=== PATIENT | female | born 2000 | race African-American/Black ===

== ENCOUNTER 2018-09-25 11:39 | Emergency (ER) | payer BC ==
[2018-09-25] MEDS ORDERED: Ondansetron TAB* 4 MG PO ONE (12:21)
[2018-09-25] MEDS ORDERED: Ibuprofen TAB* 400 MG PO ONE (12:21)
--- NOTE | 2018-09-25 12:22 | ED ---
Complex/Multi-Sys Presentation - HPI Summary HPI Summary: Pt. is a 17 y.o female who presents to the ER for N/V/D that started this morning. Pt. also notes she has been short of breath today. Pt. states with her menstrual cycle she typically gets vomiting and diarrhea. Pt. states she started her normal period yesterday. Pt. denies fever, cough, urinary sxs. She is not on control. No other past medical hx. Sxs are moderate in severity. No current modifying factors. - History Of Current Complaint Chief Complaint: EDNauseaVomitDiarrh Time Seen by Provider: 09/25/18 11:43 Hx Obtained From: Patient - Allergies/Home Medications Allergies/Adverse Reactions: Allergies Allergy/AdvReac Type Severity Reaction Status Date / Time lactose Allergy Intermediate Diarrhea Verified 09/25/18 11:50 PMH/Surg Hx/FS Hx/Imm Hx Previously Healthy: Yes Infectious Disease History: No Infectious Disease History: Denies: Traveled Outside the [place] in Last 30 Days - Family History Known Family History: Positive: Non-Contributory - Social History Occupation: Student Lives: Dormitory/Roommates Alcohol Use: None Substance Use Type: Reports: None Smoking Status (MU): Never Smoked Tobacco Review of Systems Constitutional: Negative Negative: Fever, Chills ENT: Negative Cardiovascular: Negative Respiratory: Negative Positive: Abdominal Pain, Vomiting, Diarrhea, Nausea Positive: other - vaginal bleeding.. Negative: dysuria All Other Systems Reviewed And Are Negative: Yes Physical Exam Triage Information Reviewed: Yes Vital Signs On Initial Exam: Initial Vitals Temp Pulse Resp BP Pulse Ox 97.2 F 70 16 126/70 99 09/25/18 11:45 09/25/18 11:45 09/25/18 11:45 09/25/18 11:45 09/25/18 11:45 Vital Signs Reviewed: Yes Appearance: Positive: Well-Appearing - Pt. sitting up in bed in NAD. Skin: Positive: Warm, Dry Head/Face: Positive: Normal Head/Face Inspection Eyes: Positive: Normal, EOMI Neck: Positive: Supple Respiratory/Lung Sounds: Positive: Clear to Auscultation, Breath Sounds Present Cardiovascular: Positive: Normal, RRR Abdomen Description: Positive: Nontender, Soft. Negative: Guarding Neurological: Positive: Normal, CN Intact II-III Psychiatric: Positive: Affect/Mood Appropriate Diagnostics - Vital Signs Vital Signs Temp Pulse Resp BP Pulse Ox 09/25/18 11:45 97.2 F 70 16 126/70 99 - Laboratory Result Diagrams: 09/25/18 12:31 09/25/18 12:31 Lab Statement: Any lab studies that have been ordered have been reviewed, and results considered in the medical decision making process. Complex Multi-Symp Course/Dx Course Of Treatment: Pt. presenting with V/D and SOB. She is afebrile with stable VS. PERC score 0. Pt. notes once in the ER she is feeling better but is still c/o SOB and nausea. She has a benign abd. pain. Exam unremarkable. Pt. given zofran and motrin. Labs are unremarkable. CXR unremarkable per radiology. On re-exam pt. is feeling better and tolerating PO fluids. Will dc home with zofran. Motrin as directed. Advised to f.u with [facility] for further evaluation. Pt. will return to ER if sxs change or worsen. Pt. understands and agrees with plan. - Diagnoses Provider Diagnoses: Nausea & vomiting Discharge - Sign-Out/Discharge Documenting (check all that apply): Patient Departure Patient Received Moderate/Deep Sedation with Procedure: No - Discharge Plan Condition: Improved Disposition: HOME Prescriptions: Ondansetron TAB* [Zofran 4 MG Tab*] 4 mg PO Q6H PRN #12 tab PRN Reason: Nausea Patient Education Materials: Acute Nausea and Vomiting (ED) Referrals: [facility] [Outside] Additional Instructions: Call [facility] today schedule a close follow up appointment Zofran as directed Tylenol or Motrin for pain as directed Increase fluids Return to ER if symptoms change or worsen - Billing Disposition and Condition Condition: IMPROVED Disposition: Home
[2018-09-25 12:52] LABS: ABS Basophils 0.1 10^3/ul (0-0.2); ABS Eosinophils 0.1 10^3/ul (0-0.6); ABS Lymphocytes 1.1 10^3/ul (1.0-4.8); ABS Monocytes 0.6 10^3/ul (0-0.8); ABS Neutrophils 7.7 10^3/ul (1.5-7.7); Eosinophil % 0.5 %; Hematocrit 37 % (35-47); Hemoglobin 12.3 g/dL (12.0-16.0); Lymphocyte % 11.4 %; Mean Corpuscular HGB Conc 33 g/dL (31-36); Mean Corpuscular Hemoglobin 25 pg (27-31); Mean Corpuscular Volume 77 fL (80-97); Platelet Count 215 10^3/uL (150-450); Red Blood Count 4.87 10^6 /uL (3.70-4.87); Red Cell Distribution Width 15 % (10-15); White Blood Count 9.5 10^3/uL (3.5-10.8)
[2018-09-25 13:04] LABS: ALT 9 U/L (7-52); AST 16 U/L (13-39); Albumin 4.4 g/dL (3.2-5.2); Albumin/Globulin Ratio 1.4 (1-3); Alkaline Phosphatase 53 U/L (34-104); Anion Gap 7 mmol/L (2-11); BUN/Creatinine Ratio 14.1 (8-20); Blood Urea Nitrogen 11 mg/dL (6-24); CO2 Carbon Dioxide 24 mmol/L (22-32); Calcium 9.2 mg/dL (8.6-10.3); Chloride 106 mmol/L (101-111); EGFR African American 115.1 (>60); EGFR Non-African American 95.1 (>60); Globulin 3.2 g/dL (2-4); Glucose 88 mg/dL (70-100); Potassium 3.9 mmol/L (3.5-5.0); Sodium 137 mmol/L (135-145); Total Protein 7.6 g/dL (6.4-8.9)
[2018-09-25 13:11] LABS: HCG Pregnancy < 0.60 mIU/mL
[2018-09-25 14:21] VITALS: BP 120/71
== END 2018-09-25 14:20 | disposition home or self-care (01) ==
LOC: ED 11:39
DX: R11.2 Nausea with vomiting, unspecified (principal)
CPT/HCPCS: 36415; 71046; 80053; 84702; 85025; 99282; A9270-GY